=== PATIENT | male | born 1970 | race African-American/Black ===

== ENCOUNTER 2017-05-30 05:58 | Emergency (ER) | payer MEDICAID ==
[~2017-05-30] VITALS: Ht 189.2 cm; Wt 88.6 kg
[2017-05-30 07:50] VITALS: BP 149/91
== END 2017-05-30 07:53 | disposition home or self-care (01) ==
LOC: EMS 05:59
DX: M25.511 Pain in right shoulder (principal); F17.210 Nicotine dependence, cigarettes, uncomplicated
CPT/HCPCS: 29105; 99284